=== PATIENT | male | born 1945 | race Caucasian/White ===

== ENCOUNTER → 2021-07-26 | Outpatient (CLI) | payer OTHER, SELFPAY ==
--- NOTE | 2021-07-26 09:22 | ECHOD_ITS ---
Reason For Study: CAD, TAVR Procedure This was a 2D Doppler, Color Flow transthoracic echocardiogram. Exam performed in department. Left Ventricle Normal LV size. Mild concentric left ventricular hypertrophy. Left ventricular systolic function is normal. The estimated ejection fraction is 55 %. No regional wall motion abnormalities noted. Right Ventricle Normal RV size. Normal systolic function. Atria The left atrium is mildly enlarged. Normal right atrium. Mitral Valve There is mild to moderate mitral annular calcification. Mild (1+) eccentric mitral valve insufficiency. Tricuspid Valve Normal tricuspid valve. Mild tricuspid valve insufficiency. Pulmonary artery systolic pressure is 22 mmHg. Aortic Valve Peak aortic valve gradient 16 mmHg. Mean aortic valve gradient 8 mmHg. Mild aortic stenosis. Bioprosthetic aortic valve. Pulmonic Valve Normal pulmonic valve. Great Vessels Normal aortic root. The pulmonary artery is normal size. Normal inferior vena cava. Pericardium/Pleural No pericardial effusion. MMode/2D Measurements & Calculations LVIDd: 4.2 cm IVSd: 1.4 cm LVOT diam: 2.1 cm LVIDs: 2.5 cm LVPWd: 1.3 cm LVOT area: 3.3 cm2 RVDd: 3.1 cm FS: 38.9 % LAV(MOD-bp): 87.3 ml LA A4 area: 24.8 cm2 LA dimension(2D): 4.0 cm LAV(MOD-bp) Indexed: 36.3 ml/m2 LAV(MOD-sp2): 95.3 ml LAV(MOD-sp4): 75.2 ml RA A4 area: 19.3 cm2 Doppler Measurements & Calculations MV E max kirk: 112.9 cm/sec Ao V2 max: 200.3 cm/sec LV V1 max: 130.1 cm/sec Ao max P.1 mmHg LV V1 max P.9 mmHg Ao V2 mean: 131.4 cm/sec LV V1 mean P.5 mmHg Ao mean P.9 mmHg LV V1 mean: 87.6 cm/sec Ao V2 VTI: 39.3 cm LV V1 VTI: 27.3 cm IVY(I,D): 2.3 cm2 IVY(V,D): 2.2 cm2 SV(LVOT): 91.4 ml PA V2 max: 72.7 cm/sec TR max kirk: 221.9 cm/sec TR max P.8 mmHg ECHO/Echo Complete Interpretation Summary Normal LV size. Left ventricular systolic function is normal. The estimated ejection fraction is 55 %. Mild (1+) eccentric mitral valve insufficiency. Normal pulmonic valve. Mild concentric left ventricular hypertrophy. Mild aortic stenosis. The left atrium is mildly enlarged. Bioprosthetic aortic valve. Ordering Physician: ROBBIE NUNES Referring Physician: ROBBIE NUNES Performed By: Kira Pierre RDCS
[2021-07-26 11:13] LABS: Color, Urine Yellow (Yellow); Glucose, Dipstick Normal (Normal); Ketone-Dipstick Negative (Negative); Leukocyte Esterase-Dipstick Negative /ul (Negative); Nitrite-Dipstick Negative (Negative); Occult Blood-Urine 10 /ul (Negative); Protein-Dipstick Negative (Negative); Urine Bilirubin Dipstick Negative (Negative); Urine Clarity Clear (Clear); Urine Urobilinogen Normal (Normal)
[2021-07-26 11:37] LABS: AST(SGOT) 20 U/L (15-37); Alanine Aminotransfer ALT/SGPT 32 U/L (16-61); Albumin, Serum 3.7 g/dL (3.2-5.0); Alkaline Phosphatase 53 U/L (45-117); Anion Gap 6 (5-15); BUN 15 mg/dL (7-18); BUN/Creat Ratio 13.5 RATIO (10-20); Calcium,Total 9.2 mg/dL (8.5-10.1); Chloride 106 mmol/L (98-107); Creatinine, Serum 1.11 mg/dL (0.70-1.30); EST Glomerular Filtration Rate 69 mL/min (>60); Est Glom Filt Rate - Afr Amer 83 mL/min (>60); Globulin 3.8 g/dL (2.2-4.2); Glucose 164 mg/dL (74-106); Protein, Total 7.5 g/dL (6.4-8.2); Sodium Level 139 mmol/L (136-145)
== END | disposition home or self-care (01) ==
DX: I25.10 Atherosclerotic heart disease of native coronary artery without angina pectoris (principal); E11.9 Type 2 diabetes mellitus without complications
CPT/HCPCS: 36415; 80053; 81002; 93306